=== PATIENT | female | born 1970 | race Caucasian/White ===

== ENCOUNTER 2024-06-09 11:46 | Outpatient (CLI) | payer OTHER, SELFPAY ==
--- NOTE | 2024-06-09 11:55 | ECG_ITS ---
Test Date: 2024-06-09 12:02:33 Measurements Intervals [place] Rate: 83 P: 40 DC: 181 QRS: -25 QRSD: 84 T: 3 QT: 332 QTc: 390 Interpretive Statements SINUS RHYTHM LOW QRS VOLTAGE IN PRECORDIAL LEADS POOR R WAVE PROGRESSION BORDERLINE T WAVE ABNORMALITY- ANT/INF LEADS BASELINE ARTIFACT- I, III, AVR, AVL, V6 BORDERLINE ECG No previous ECG available for comparison Electronically Signed On 06-09-2024 12:24:14 CDT by Darnell Ospina D.O.
[2024-06-09 12:20] LABS: Hematocrit 45.6 % (37.0-47.0); Hemoglobin 14.5 g/dL (12.0-15.0); Mean Corpuscular HGB Conc 31.8 g/dl (32-36); Mean Corpuscular Hemoglobin 30.4 pg (26-34); Mean Corpuscular Volume 95.6 fl (80-100); Mean Platelet Volume 8.7 fl (7.4-10.4); Platelet Count Result 231 k/mm3 (150-375); Red Blood Count 4.77 M/mm3 (4.2-5.4); Red Cell Distribution Width 13.4 % (11.5-14.5); White Blood Count 7.1 K/mm3 (4.5-10.0)
[2024-06-09 12:35] LABS: Anion Gap 7 mmol/L (4-12); Blood Urea Nitrogen 15 mg/dL (7-17); Calcium 9.2 mg/dL (8.4-10.2); Carbon Dioxide 32 mmol/L (22-30); Chloride 102 mmol/L (98-107); Estimated Glomerular Filt Rate > 60; Glucose 137 mg/dL (65-110); Potassium 3.4 mmol/L (3.4-5.0); Sodium 141 mmol/L (137-145)
== END 2024-06-09 11:47 | disposition home or self-care (01) ==
LOC: ANHSURGERY 11:49
PROVIDERS: Anesthesiology; PCP Family Medicine; Visit Provider Student in an Organized Health Care Education/Training Program
DX: D25.9 Leiomyoma of uterus, unspecified (principal); E78.5 Hyperlipidemia, unspecified; Z79.899 Other long term (current) drug therapy; R94.31 Abnormal electrocardiogram [ECG] [EKG]
CPT/HCPCS: 36415; 80048; 85027; 86850; 86900; 86901; 93005

== ENCOUNTER 2024-06-15 00:32 | Day surgery (SDC) | payer OTHER, SELFPAY ==
[2024-06-03 15:53] VITALS: BMI 45.0
--- NOTE | 2024-06-03 15:55 | PC.NURSE ---
Report to the Outpatient Waiting Room, entrance under the green pavilion located off [facility], at time _0800_ on date _[id number]_. Planned Procedure Time: _1000_. Time changes happen often and if your time is changed the preop area will call you the afternoon before. - You and your visitor will be asked to self-screen and do not enter if you have any COVID symptoms. - A mask is optional within the hospital at this time. Patients may have clear liquids (water, carbonated beverages, clear teas, apple juice) until 3 hours prior to surgery with a maximum of 20 ounces. - No food from midnight until time of surgery Take the following medications with a SIP of water the morning of surgery: Buspirone, Lexapro, and if needed pain pill. DO NOT STOP ANY OF YOUR OTHER PRESCRIPTION MEDICATIONS PRIOR TO SURGERY ?EXCEPT THE FOLLOWING Medications to discontinue per physician ____None Date to take last dose Please no make-up, nail libyan, hairspray, perfume, deodorant, or body powder the day of surgery. No jewelry (including any body piercings) or valuables the day of surgery, leave them at home. Please take a shower or bath the night before, or the morning of, surgery with an antibacterial soap. Wear comfortable, loose fitting clothing. - Jewelry must be removed prior to entering the operating room. Rings and piercings that are not removed may be cut off. - The hospital will not accept responsibility for valuables. - Please leave all valuables, including medications, at home the day of surgery. If you are going home after surgery, a licensed delivery driver/customer service must drive you home. - NO public transportation without another adult if you receive anesthesia. - We recommend that an adult stay with you for 24 hours following discharge. - We also recommend that you do not drive, make important decision, drink alcoholic beverages, or take any drugs that were not prescribed by your health care provider for at least 24 hours after your discharge time. Follow any additional instructions given to you from your surgeon. If you or anyone in your household have experienced Covid symptoms in the past week, please notify your surgeon or the nurse liaison at the phone number below for possible testing. Telephone instructions given to __Brejayleena__and asked if any additional questions and then verbalized understanding. Patient advised to call surgeon office or pre surgery nurse liaison [phone] if any additional questions.
[2024-06-15] VITALS (15 sets, daily range): BP systolic 106–151; BP diastolic 70–88; PULSE 69–93; RESP 12–20; TEMP 36.1–36.6; O2SAT 86–100
--- NOTE | 2024-06-15 07:06 | PM.IMHP ---
H&P: HPI History of Present Illness Date/Time: 06/15/24 07:06 Chief Complaint: uterine fibroid pelvic pain Narrative: 53 yo female who presents for surgical management of uterine fibroids. Patient has a known history of uterine fibroids. Patient was recently seen by her primary care physician who noticed the patient was uncomfortable on abdominal exam. Patient states a previous provider recommended surgery but she was lost to follow-up. Patient states she was noted to have a pelvic mass that was later identified as a fibroid. Patient states the last physician was concerned that the mass had grown. Patient reports a positive history of HPV but states Pap smears have been normal. Patient currently has IUD in place. Patient states the IUD was placed in 2017. Patient reports amenorrhea. Review of Systems Cardiovascular: Cardiovascular: Denies chest pain, Denies leg edema, Denies palpitations, Denies dyspnea and Denies dyspnea on exertion Respiratory: Respiratory: Denies cough, Denies dyspnea and Denies dyspnea on exertion Gastrointestinal: Gastrointestinal: Denies abdominal pain, Denies constipation, Denies diarrhea, Denies nausea and Denies vomiting Genitourinary: Genitourinary: Denies hematuria, Denies urinary frequency, Denies dysuria, Denies pelvic pain, Denies urinary incontinence and Denies vaginal discharge Neurologic: Reports system reviewed and no additional complaints, except as documented Psychiatric: Psychiatric: Reports no additional psychiatric complaints Endocrine: Endocrine: Denies palpitations PMFSH Past Medical History Medical History Acute anxiety Allergy Anemia Arthralgia Fibromyalgia GERD (gastroesophageal reflux disease) H/O nephrolithotomy with removal of calculi High blood pressure IBS (irritable bowel syndrome) Kidney disease Screening mammogram for breast cancer Surgical History Surgical History H/O gynecological procedure Mirena IUD insertion 2016 H/O lithotripsy Family History Family History Father Hypertension Heart disease Mother Heart disease Grandparent Heart disease Social History Social History Smoking status: Never smoker Alcohol intake: former Substance use: never Do You Feel Safe in your Home?: Yes Lack of Transportation: No Lack of Food: Never True Current Housing: I Have Housing Concerned About Future Housing: No Difficulty Paying for Meds: No Currently Unemployed: YES Education: High School Diploma/GED Difficulty w/ Childcare or Family Care: No Living arrangements: with family Occupation/Education: unemployed Additional occupation/education comments: disabled Gender identity (if verbalized by the patient): Female Sexual Orientation (if Verbalized by the Patient): Straight or Heterosexual Spiritual care concerns: No Meds Home Medications and Allergies Home Medications Medication Instructions Recorded Confirmed Type cyclobenzaprine 10 mg tablet 10 mg PO TID 04/01/24 06/03/24 History escitalopram oxalate 20 mg tablet 20 mg PO DAILY 04/01/24 06/03/24 History (Lexapro) furosemide 40 mg tablet (Lasix) 40 mg PO QAM 04/01/24 06/03/24 History hydrochlorothiazide 12.5 mg tablet 12.5 mg PO DAILY 04/01/24 06/03/24 History levonorgestrel 21 mcg/24 hr (up to 1 device intrauterine ONCE 04/01/24 06/03/24 History 8 years) 52 mg intrauterine device (Mirena) pantoprazole 40 mg tablet,delayed 40 mg PO QAM 04/01/24 06/03/24 History release potassium chloride 20 mEq 20 meq PO DAILY 04/01/24 06/03/24 History tablet,extended release dicyclomine 10 mg capsule 20 mg PO QID 04/02/24 06/03/24 History atorvastatin 20 mg tablet 20 mg PO DAILY 04/13/24 06/03/24 History buspirone 15 mg tablet 15 mg PO BID 04/13/24 07
--- NOTE | 2024-06-15 07:08 | WPDHPUPDATE1 ---
History and Physical Update Update Date/Time: 06/15/24 07:08 History and Physical has been reviewed, including an updated exam of the patient. There are NO changes in the patient's condition. Risks, benefits, and alternatives have been discussed and questions answered. Patient agrees to proceed with procedure.
[2024-06-15] MEDS: ACETAMINOPHEN 500 MG TABLET 1000 MG PO (08:52)
[2024-06-15] MEDS: KETOROLAC 15 MG/ML VIAL (*BKC) IV PUSH (08:52)
[2024-06-15] MEDS: LACTATED RINGERS 1,000 ML 30 ML IV CONT ×2 (08:52→12:46)
--- NOTE | 2024-06-15 08:57 | WPDANESEPPF ---
Anes - Initial Pre Proc Eval Procedure: Operation Date: 06/15/24 10:00 Proposed Procedures p Robotic Assisted Total Laparoscopic Hysterectomy with Bilateral Salpingectomy - Jb Davies MD Date/Time: 06/15/24 08:57 Surgeon: Jb Davies MD Pre Op Diagnosis: Uterine Fibroid Patient Data Age: 53 Gender: F Height: 1.65 m Weight: 124.5 kg Last Vital Signs Temp 97.5 F L 06/15/24 08:54 Pulse 78 06/15/24 08:54 BP 145/88 H 06/15/24 08:54 Pulse Ox 97 06/15/24 08:54 O2 Del Method Room Air 06/15/24 08:54 Allergies Allergy/AdvReac Type Severity Reaction Status Date / Time gabapentin Allergy Intermediate other Verified 06/03/24 15:30 Home Medications Medication Instructions Recorded Confirmed Type cyclobenzaprine 10 mg tablet 10 mg PO TID 04/01/24 06/03/24 History escitalopram oxalate 20 mg tablet 20 mg PO DAILY 04/01/24 06/03/24 History (Lexapro) furosemide 40 mg tablet (Lasix) 40 mg PO QAM 04/01/24 06/03/24 History hydrochlorothiazide 12.5 mg tablet 12.5 mg PO DAILY 04/01/24 06/03/24 History levonorgestrel 21 mcg/24 hr (up to 1 device intrauterine ONCE 04/01/24 06/03/24 History 8 years) 52 mg intrauterine device (Mirena) pantoprazole 40 mg tablet,delayed 40 mg PO QAM 04/01/24 06/03/24 History release potassium chloride 20 mEq 20 meq PO DAILY 04/01/24 06/03/24 History tablet,extended release dicyclomine 10 mg capsule 20 mg PO QID 04/02/24 06/03/24 History atorvastatin 20 mg tablet 20 mg PO DAILY 04/13/24 06/03/24 History buspirone 15 mg tablet 15 mg PO BID 04/13/24 06/03/24 History hydrocodone 5 mg-acetaminophen 325 1 tablet PO TID PRN Pain 04/13/24 06/03/24 History mg tablet amitriptyline 25 mg tablet 25 mg PO QHS #30 tabs 05/14/24 06/03/24 Rx ondansetron 8 mg disintegrating 8 mg PO QID PRN Nausea 06/03/24 06/03/24 History tablet Patient hx anesthesia problems: none Family hx anesthesia problems: none Results Review: All pre-operative results and documents have been reviewed as part of the pre-operative evaluation. [facility] Past Medical History Medical History Acute anxiety Allergy Anemia Arthralgia Fibromyalgia GERD (gastroesophageal reflux disease) H/O nephrolithotomy with removal of calculi High blood pressure IBS (irritable bowel syndrome) Kidney disease Screening mammogram for breast cancer Surgical History Surgical History H/O gynecological procedure Mirena IUD insertion 2016 H/O lithotripsy Family History Family History Father Hypertension Heart disease Mother Heart disease Grandparent Heart disease Social History Social History Smoking status: Never smoker Alcohol intake: former Substance use: never Do You Feel Safe in your Home?: Yes Lack of Transportation: No Lack of Food: Never True Current Housing: I Have Housing Concerned About Future Housing: No Difficulty Paying for Meds: No Currently Unemployed: YES Education: High School Diploma/GED Difficulty w/ Childcare or Family Care: No Living arrangements: with family Occupation/Education: unemployed Additional occupation/education comments: disabled Gender identity (if verbalized by the patient): Female Sexual Orientation (if Verbalized by the Patient): Straight or Heterosexual Spiritual care concerns: No Anes - Eval Final PreProcedure Day of Procedure 06/15/24 08:57 Patient weight: obese Heart: regular rate and rhythm Lungs: clear to auscultation Airway: Mallampati scale and special considerations (Missing many teeth in the post aspect, upper and lower both, none loose. ) Neurological: alert and oriented Last oral intake: >/= 8 hours ASA classification: III Emergent: no Anesthetic plan: proceed
[2024-06-15] MEDS: ceFAZolin 3 GM/D5W 100 ML 100 ML IVPB (10:32)
[2024-06-15] MEDS: LIDO 1%/EPINEPHRINE 1:100,000 50 ML VIAL 20 ML INFILTRATE (11:14)
--- NOTE | 2024-06-15 12:27 | W.PM.PROC2 ---
Procedure Note - Detailed Date of Procedure 06/15/24 Pre-op Diagnosis Uterine Fibroid pelvic pain Post-op Diagnosis Same Procedure Performed robotic assisted total laparoscopic hysterectomy and bilateral salpingectomy Surgeon Jb Davies MD Anesthesia General Indications uterine fibroid, pelvic pain Findings large anterior uterine fibroid near the cervical isthmus. Normal appearing ovaries bilaterally, s/p tubal ligation bilaterally Description of Procedure After the patient was appropriately consented she was taken to the operating room where she was transferred to the table in a dorsal supine position. General anesthesia was then induced with endotracheal intubation. The patient was transferred to a dorsal lithotomy position using adjustable yellow-fin stirrups. Her position was adjusted for appropriate support of her lower back and lower extremities. The patient was prepped and draped. A transurethral bennett catheter was place. The cervix was sequentially dilated and a REN uterine manipulator placed in typical fashion about a 3.5 cm CARMITA ring. Gloves were changed. After confirmation of a functioning orogastric tube, lidocaine was injected at Donahue's point in the LUQ and a 5mm incision was made. A 5mm Optiview trocar was then inserted into the abdominal cavity under direct visualization and done so without complication. The abdomen was then insufflated with approximately 2-3L of CO2 establishing a pneumoperitoneum and the patient was placed in Trendelenburg position. Just above the umbilicus in the midline, a 8 mm incision made after injection of lidocaine and a 8 mm bladeless trocar advanced into the abdominal cavity under direct visualization without incident. We subsequently placed two robotic ports in a similar fashion, one in the left mid-quadrant and one in the right, 10cm lateral to the midline port. The robot was then docked. Attention was turned to the left pelvis. The left fallopian tube was removed by sequentially dividing the mesosalpinx towards the uterus sparing the ovary. The utero-ovarian ligament was desiccated and transected, as was the round ligament. The posterior peritoneal leaf was taken down to the CARMITA ring. The anterior leaf was developed as well as the start of the bladder flap. The left uterine artery was then skeletonized and desiccated and transected just above the level of the CARMITA ring. Attention was turned to the right pelvis. The right fallopian tube was removed by sequentially dividing the mesosalpinx towards the uterus sparing the ovary. The utero-ovarian ligament was desiccated and transected, as was the round ligament. The posterior peritoneal leaf was taken down to the CARMITA ring. The anterior leaf was developed as well as the start of the bladder flap. The right uterine artery was then skeletonized and desiccated and transected just above the level of the CARMITA ring. The bladder was then further dissected inferiorly over the level of the CARMITA ring. The large anterior uterine fibroid was distorting normal anatomy. Prior to performing the colpotomy, a linear incision was made over the anterior surface of the fibroid. Uterine fibroid serosal plane was identified. myomectomy was then performed removing the uterine fibroid through an anterior hysterotomy. The Syed ring was then identified. A circumferential colpotomy was made using monopolar current. The uterus, cervix, bilateral tubes, And fibroid were then delivered transvaginally. I then placed a single figure of eight suture of 0-vicryl in the left corner of the vaginal cuff. I then re-approximated the colpotomy with a running #1 PDO Quill suture in 2 layers. Following this dissection, the abdomen and pelvis were copiously irrigated and all surgical sites found to be hemostatic. Skin sites were reapproximated with 4-0 Vicryl in a subcuticular fashion. Steri-Strips were placed. The patient tolerated the procedure well. Sponge, needle and instrument counts were courtney
[2024-06-15] MEDS: fentaNYL CITRATE INJ (*CRX) 100 MCG/2 ML VIAL 25 MCG IV PUSH ×8 (13:02→13:33)
[2024-06-15] MEDS: ONDANSETRON INJ 4 MG/2 ML VIAL IV PUSH ×3 (13:04→13:13)
[2024-06-15] MEDS: HYDROmorphone HCL INJ (*CRX) 1 MG/ML SYR 0.25 MG IV PUSH ×4 (13:44→14:00)
[2024-06-15] MEDS: diphenhydrAMINE HCl INJ 50 MG/ML VIAL 12.5 MG IV PUSH ×2 (14:03→14:10)
--- NOTE | 2024-06-15 15:09 | ADMGEN ---
This patient, Alanna Leavitt, was admitted to [facility] Surg Room 329-01. Patient/family oriented to hospital policies and general routines including ID bracelet, bed and alarms, visiting hours, pain management, procedures, bathroom and other care routines, personal items, smoking policy, room service/diet, and visiting hours. Information on how to activate the Rapid Response Team has been discussed. Patient/Family are encouraged to report perceived risks to care and to ask questions if they do not understand what they are told or what they should do.
[2024-06-15] MEDS: HYDROcodone/acetaminophen (*CRX) 10-325 MG TABLET 1 TAB PO ×2 (15:21→20:06)
[2024-06-15] MEDS: SIMETHICONE 80 MG TAB.CHEW PO (18:16)
[2024-06-15] MEDS: SENNA/DOCUSATE SODIUM TABLET 2 TAB PO (20:06)
[2024-06-15] MEDS: busPIRone HCL 5 MG TABLET 15 MG PO (20:06)
[2024-06-16 00:15] VITALS: BP 116/62; PULSE 62; RESP 18; TEMP 36.6; O2SAT 93
[2024-06-16] MEDS: IBUPROFEN 600 MG TABLET PO (03:19)
[2024-06-16 05:46] VITALS: BP 114/75; PULSE 62; RESP 18; TEMP 36.4; O2SAT 97
[2024-06-16 06:10] LABS: Basophils Percent Auto 0.2 % (0.2-1.2); Hematocrit 40.4 % (37.0-47.0); Hemoglobin 12.8 g/dL (12.0-15.0); Immature Granulocyte Absolute 0.04 K/mm3 (0.00-0.031); Immature Granulocyte Percent A 0.4 % (0-0.5); Lymphocytes Absolute Auto 1.27 K/mm3 (0.9-3.2); Lymphocytes Percent Auto 11.8 % (18.3-44.2); Mean Corpuscular HGB Conc 31.7 g/dl (32-36); Mean Corpuscular Hemoglobin 30.4 pg (26-34); Mean Platelet Volume 8.7 fl (7.4-10.4); Monocytes Absolute Auto 0.6 K/mm3 (0.1-0.6); Monocytes Percent Auto 5.7 % (2.6-8.5); Neutrophils Absolute Auto 8.9 K/mm3 (1.3-6.7); Neutrophils Percent Auto 81.9 % (45.5-73.1); Platelet Count Result 220 k/mm3 (150-375); Red Blood Count 4.21 M/mm3 (4.2-5.4); Red Cell Distribution Width 13.6 % (11.5-14.5); White Blood Count 10.8 K/mm3 (4.5-10.0)
[2024-06-16 06:29] LABS: Anion Gap 7 mmol/L (4-12); Blood Urea Nitrogen 12 mg/dL (7-17); Calcium 8.9 mg/dL (8.4-10.2); Carbon Dioxide 29 mmol/L (22-30); Chloride 101 mmol/L (98-107); Estimated CRCL calculation 104 ml/min; Estimated Glomerular Filt Rate > 60; Glucose 114 mg/dL (65-110); Potassium 3.8 mmol/L (3.4-5.0); Sodium 137 mmol/L (137-145)
[2024-06-16] MEDS: ESCITALOPRAM OXALATE 10 MG TABLET 20 MG PO (07:57)
[2024-06-16] MEDS: SIMETHICONE 80 MG TAB.CHEW PO (07:57)
[2024-06-16] MEDS: ATORVASTATIN 20 MG TABLET PO (07:57)
[2024-06-16] MEDS: busPIRone HCL 5 MG TABLET 15 MG PO (07:57)
[2024-06-16] MEDS: PANTOPRAZOLE 40 MG TABLET PO (07:57)
[2024-06-16 08:00] VITALS: O2SAT 97
--- NOTE | 2024-06-16 08:03 | PM.DS ---
DS: Admitting Diagnosis Discharge Date 06/16/24 Admitting Diagnosis uterine fibroid pelvic pain DS: Discharge Diagnosis Discharge Diagnosis (1) Uterine fibroid: Code(s): D25.9 - Leiomyoma of uterus, unspecified Status: Acute (2) Pelvic pain: Code(s): R10.2 - Pelvic and perineal pain Status: Acute DS: Summary Hospital Course Hospital Course: Alanna Leavitt was admitted after robotic assisted total laparoscopic hysterectomy and bilateral salpingectomy for uterine fibroids and pelvic pain. The above procedure was performed with no complications. She is doing well post op. She states her pain is well controlled with PO medications. She reports minimal bleeding. She is ambulating up to the chair. Her bennett catheter was removed. She is tolerating PO without N/V. She reports passing flatus. Status at Discharge Overall status at discharge: patient is progressing back to baseline Time Spent with Patient Time attestation: Total time spent providing and/or coordinating discharge services: Time spent: Less than 30 minutes Exam Const: General: comfortable and no acute distress Limitations: no limitations Resp: Effort & Inspection: normal respiratory effort Auscultation: clear to auscultation bilaterally Cardio: Rate: regular rate Rhythm: regular rhythm GI: Inspection: non-distended GI Palp: Yes Soft to palpation, Yes Tenderness to palpation present (GI) (milder tenderness to deep palpation) and No Guarding due to palpation present (GI) Auscultation: normal bowel sounds Other: incisions C/D/I covered with dermabond Urinary Catheter: Urinary Catheter: urine clear Skin: General skin exam: normal color Extrem: General: normal to inspection Psych: Mental Status: mental status grossly normal Affect: normal affect DS: Data Data Completed and Pending Pending studies at discharge: Pending at discharge 06/15/24 11:15 Surgical [PTH] Routine Labs on day of discharge: Labs from last 24 hours 06/16/24 05:52 WBC 10.8 H RBC 4.21 Hgb 12.8 Hct 40.4 MCV 96.0 MCH 30.4 MCHC 31.7 L RDW 13.6 Plt Count 220 MPV 8.7 Immature Gran % (Auto) 0.4 Neut % (Auto) 81.9 H Lymph % (Auto) 11.8 L [place] % (Auto) 5.7 Eos % (Auto) 0.0 Baso % (Auto) 0.2 Lymph # (Auto) 1.27 [place] # (Auto) 0.6 Eos # (Auto) 0.0 Baso # (Auto) 0.0 Abs Immat Gran (auto) 0.04 H Absolute Neuts (auto) 8.9 H Absolute Nucleated RBC 0.000 Nucleated RBC % 0.0 Sodium 137 Potassium 3.8 Chloride 101 Carbon Dioxide 29 Anion Gap 7 BUN 12 Creatinine 0.70 Estim Creat Clear Calc 104 Estimated GFR > 60 Glucose 114 H Calcium 8.9 Discharge Plan Discharge Patient Disposition: Home, Self-Care Patient Instructions: Laparoscopic Hysterectomy (DC) Stand Alone Forms: General Discharge Instructions Follow-up/Referrals: Jb Davies MD [Physician] - 2 Weeks Discharge Medications: New oxycodone-acetaminophen 5-325 mg tablet 1 tablet PO Q6H PRN (Reason: pain) Qty: 28 0RF ibuprofen 600 mg tablet 600 mg PO Q6H PRN (Reason: pain) Qty: 30 0RF Continued cyclobenzaprine 10 mg tablet 10 mg PO TID hydrochlorothiazide 12.5 mg tablet 12.5 mg PO DAILY furosemide [Lasix] 40 mg tablet 40 mg PO QAM Mirena 21 mcg/24 hr (8 yrs) 52 mg intrauterine device 1 device intrauterine ONCE Rx Instructions: as a single dose pantoprazole 40 mg tablet,delayed release (DR/EC) 40 mg PO QAM potassium chloride 20 mEq tablet extended release 20 meq PO DAILY escitalopram oxalate [Lexapro] 20 mg tablet 20 mg PO DAILY dicyclomine 10 mg capsule 20 mg PO QID buspirone 15 mg tablet 15 mg PO BID atorvastatin 20 mg tablet 20 mg PO DAILY ondansetron 8 mg tablet,disintegrating 8 mg PO QID PRN (Reason: Nausea) amitriptyline 25 mg tablet 25 mg PO QHS Qty: 30 3RF Held hydrocodone-acetaminophen 5-325 mg tablet
== END 2024-06-16 10:46 | disposition home or self-care (01) ==
LOC: ANHSURGERY 07:31 → ANH3MEDSUR 14:40
PROVIDERS: PCP Family Medicine; Visit Provider Student in an Organized Health Care Education/Training Program
PROC: (CPT 58573; principal; 2024-06-15 10:00)
DX: D25.1 Intramural leiomyoma of uterus (principal); N72 Inflammatory disease of cervix uteri; N88.8 Other specified noninflammatory disorders of cervix uteri; N70.11 Chronic salpingitis; N87.9 Dysplasia of cervix uteri, unspecified; K21.9 Gastro-esophageal reflux disease without esophagitis; F41.9 Anxiety disorder, unspecified; E66.9 Obesity, unspecified; Z68.42 Body mass index [BMI] 45.0-49.9, adult
CPT/HCPCS: 58573; S2900; 36415; 80048; 85025; 88307; A9270; J0690; J1100; J1170; J1200; J1596; J1885; J2250; J2405; J2704; J3010; J7120